=== PATIENT | male | born 1975 | race African-American/Black ===

== ENCOUNTER 2024-01-01 20:18 | Emergency (ER) | payer SELFPAY ==
[~2024-01-01] VITALS: Ht 175.3 cm; Wt 104.0 kg
[2024-01-01 20:54] VITALS: O2SAT 97
[2024-01-01] MEDS ORDERED: KETOROLAC 60MG/2ML VIAL IM ONE (23:00)
[2024-01-01 23:19] LABS: HEMATOCRIT. 49.2 % (42.0-52.0); HEMOGLOBIN. 16.5 g/dL (14.0-18.0); MEAN CORPUSCULAR HEMOGLOBIN 27.5 pg (28.0-32.0); MEAN CORPUSCULAR HGB CONC 33.5 g/dL (31.0-37.0); MEAN PLATELET VOLUME 7.1 fl (7.4-10.4); PLATELET 254 x1000/uL (130-400); RED CELL DISTRIBUTION WIDTH 14.2 % (11.6-14.6); WHITE BLOOD COUNT 7.6 x1000/uL (4.5-11.0)
[2024-01-01 23:20] LABS: DIFFERENTIAL COMMENT 1
[2024-01-01 23:25] LABS: PROTHROMBIN TIME 11.2 sec (9.6-11.0)
[2024-01-01 23:33] LABS: CHLORIDE 105 mEq/L (98-107); POTASSIUM 3.9 mEq/L (3.5-5.1); SODIUM 137 mEq/L (136-145)
[2024-01-01 23:34] LABS: CARBON DIOXIDE 28 mEq/L (21-32)
[2024-01-01 23:35] LABS: CALCIUM 9.7 mg/dL (8.7-10.4)
[2024-01-01 23:39] LABS: CREATININE 1.2 mg/dL (0.6-1.3); GLUCOSE 97 mg/dL (70-105)
[2024-01-01 23:40] LABS: UREA NITROGEN BLOOD 12 mg/dL (9-23)
[2024-01-01 23:41] LABS: ALANINE AMINOTRANSFERASE 62 IU/L (10-49); ALBUMIN 4.4 g/dL (3.2-4.8); ASPARTATE AMINOTRANSFERASE 36 IU/L (<34)
[2024-01-01 23:42] LABS: BILIRUBIN TOTAL 0.7 mg/dL (0.1-1.0); PROTEIN TOTAL 7.9 g/dL (6.0-8.3)
[2024-01-01 23:44] LABS: CLARITY URINE CLEAR (CLEAR); COLOR URINE YELLOW (YELLOW); GLUCOSE URINE NEGATIVE (NEGATIVE); KETONES URINE TRACE (NEGATIVE); LEUKOCYTE ESTERASE URINE NEGATIVE (NEGATIVE); NITRITE URINE NEGATIVE (NEGATIVE); OCCULT BLOOD URINE NEGATIVE (NEGATIVE); PROTEIN URINE NEGATIVE (NEGATIVE); SPECIFIC GRAVITY URINE 1.029 (1.005-1.030)
[2024-01-02] MEDS: KETOROLAC 15MG/ML VIAL IV ONE (00:04)
[2024-01-02] MEDS ORDERED: IBUP-2028 MT (00:41)
[2024-01-02 01:08] VITALS: BP 170/120; PULSE 68; RESP 16; TEMP 98.3
[2024-01-02 07:37] LABS: PLATELET ESTIMATE NORMAL
== END 2024-01-02 01:10 | disposition home or self-care (01) ==
LOC: ER 20:18
DX: N20.0 Calculus of kidney (principal); I10 Essential (primary) hypertension
CPT/HCPCS: 99285; 74176; 80053; 81003; 83690; 85025; 85610; 36415; 96374; J1885